=== PATIENT | male | born 1970 | race Caucasian/White ===

== ENCOUNTER 2025-04-21 14:58 | Outpatient (CLI) | payer BC, SELFPAY | END 2025-04-21 14:59 | disposition home or self-care (01) | LOC: NFLDREF 04-25 08:16 | PROVIDERS: PCP Family Medicine; Referring Provider Family Medicine; Visit Provider Family Medicine | DX: Z00.00 Encounter for general adult medical examination without abnormal findings (principal); Z13.6 Encounter for screening for cardiovascular disorders; Z12.5 Encounter for screening for malignant neoplasm of prostate | CPT/HCPCS: 80053; 80061; G0103 ==

== ENCOUNTER 2025-05-02 13:39 | Outpatient (CLI) | payer BC, SELFPAY ==
[2025-05-02 14:56] VITALS: BP 136/74; PULSE 100; RESP 22; O2SAT 96
--- NOTE | 2025-05-02 14:57 | P.STN_ITS ---
Stress Test Note Date Date of test: 05/02/25 Providers Primary care provider: Juan Diego Couch Stress test physician: Aston Tolliver Stress Test Note Stress test ordered: Stress Echo Indication for test: shortness of breath Results discussion: patient is a very nice 55-year-old gentleman who presents for evaluation of shortness of breath, cardiac stress test medical history form is reviewed, I did discuss the risks benefits and side effects of doing the treadmill with him and he would like to go forward with this. Pretest EKG shows normal sinus rhythm, no acute ST wave changes are noted. BP is 132 and 72. . Standard Hood protocol is employed over a time course of 10 minutes, metabolic equivalent was 11.7 his maximum heart rate was 191 which is 134% of the maximum. He did not have any subjective symptoms of angina, or anginal equivalents. During this test there is no appreciable ST wave changes suggestive of ischemia. He r ecovered normally, conditioning was felt to be good. Impression: negative electrographic stress echo, subjectively negative Follow up suggested: await echo imaging which will be read by Cardiology, Preliminarily viewed by myself in the tech did not show any large wall motion abnormalities. patient will be discharged from this facility, to follow up with his primary care physician, there were no complications
== END 2025-05-02 13:40 | disposition home or self-care (01) ==
PROVIDERS: PCP Family Medicine; Visit Provider Family Medicine
DX: R06.09 Other forms of dyspnea (principal); I35.1 Nonrheumatic aortic (valve) insufficiency
CPT/HCPCS: 93016; 93325; 93351

== ENCOUNTER 2025-06-12 09:00 | Outpatient (CLI) | payer BC, SELFPAY ==
--- NOTE | 2025-06-12 10:51 | P.ANES_ITS ---
Anesthesia Charges Start Date/Time Anesthesia Start Date: 06/12/25 Anesthesia Start Time: 10:02 Stop Date/Time Anesthesia Stop Date: 06/12/25 Anesthesia Stop Time: 10:43 Coding CPT Codes CPT Codes: BANDAR LWR INTST NDOK NOS - 57220 ([id number]) P1 - NORMAL HEALTHY PATIENT, QK - SENIOR MEDICAL TRANSCRIPTIONIST 2-4 CNCRNT ANES PROC, QX - BLUEPRINT MAKER SVC W/ MED DIRECTION
--- NOTE | 2025-06-12 10:51 | W.ANESCHARGE ---
Anesthesia Charges Start Date/Time Anesthesia Start Date: 06/12/25 Anesthesia Start Time: 10:02 Stop Date/Time Anesthesia Stop Date: 06/12/25 Anesthesia Stop Time: 10:43 Coding CPT Codes CPT Codes: BANDAR LWR INTST NDOK NOS - 83617 ([id number]) P1 - NORMAL HEALTHY PATIENT, QK - AGENCY LEGAL COUNSEL 2-4 CNCRNT ANES PROC, QX - JEWEL SUPERVISOR SVC W/ MED DIRECTION
--- NOTE | 2025-06-12 11:22 | P.ANES_ITS ---
Anesthesia Charges Start Date/Time Anesthesia Start Date: 06/12/25 Anesthesia Start Time: 10:02 Stop Date/Time Anesthesia Stop Date: 06/12/25 Anesthesia Stop Time: 10:43 Coding CPT Codes CPT Codes: BANDAR LWR INTST NDWA NOS - 17847 ([id number]) P1 - NORMAL HEALTHY PATIENT, QK - [facility] 2-4 CNCRNT ANES PROC, QX - PROFESSIONAL WRESTLER SVC W/ MED DIRECTION
--- NOTE | 2025-06-12 11:22 | W.ANESCHARGE ---
Anesthesia Charges Start Date/Time Anesthesia Start Date: 06/12/25 Anesthesia Start Time: 10:02 Stop Date/Time Anesthesia Stop Date: 06/12/25 Anesthesia Stop Time: 10:43 Coding CPT Codes CPT Codes: BANDAR LWR INTST NDPA NOS - 87897 ([id number]) P1 - NORMAL HEALTHY PATIENT, QK - LACE PAPER MACHINE OPERATOR 2-4 CNCRNT ANES PROC, QX - MEDICAL DIRECTOR OCCUPATIONAL HEALTH SVC W/ MED DIRECTION
== END 2025-06-12 09:01 | disposition home or self-care (01) ==
LOC: OP CLINIC 09:00
PROVIDERS: PCP Family Medicine; Visit Provider Surgery
DX: Z12.11 Encounter for screening for malignant neoplasm of colon (principal); D12.2 Benign neoplasm of ascending colon; D12.3 Benign neoplasm of transverse colon; D49.0 Neoplasm of unspecified behavior of digestive system; Z80.0 Family history of malignant neoplasm of digestive organs
CPT/HCPCS: 00811; 00812; 45385; J2704